=== PATIENT | female | born 1945 | race Caucasian/White ===

== ENCOUNTER 2017-09-05 08:54 | Inpatient (IN) | payer OTHER, BC ==
[2017-08-17 14:07] VITALS: BMI 23.0
--- NOTE | 2017-08-17 14:42 | PAT Medication Instructions ---
Service Date Aug 17, 2017. Current Home Medication List Amlodipine (Norvasc), 2.5 MG PO QPM Fish Oil ([place]-3), 1 CAP PO QAM Ibuprofen (Advil), 400-600 MG PO PRN Metoprolol Succinate (Toprol Xl), 25 MG PO QPM Multivitamin (Multivitamin), 1 TAB PO QAM Medication Instructions For Your Scheduled Surgery -Follow your surgeon's instructions for: Ibuprofen (Advil), 400-600 MG PO PRN - Hold the following medications 2 weeks prior to surgery: Fish Oil ([place]-3), 1 CAP PO QAM - Hold the following medications the morning of surgery: Multivitamin (Multivitamin), 1 TAB PO QAM - Take the following medications as scheduled the night before surgery: Metoprolol Succinate (Toprol Xl), 25 MG PO QPM Amlodipine (Norvasc), 2.5 MG PO QPM NOTHING TO EAT O DRINK AFTER MIDNIGHT If you have any questions please call us at [phone] or [phone] or [phone]
--- NOTE | 2017-08-17 15:40 | DIAGNOSTIC IMAGING REPORT ---
CHEST 2 VIEWS ROUTINE CLINICAL HISTORY: Preoperative evaluation. COMPARISON STUDY: No previous studies for comparison. FINDINGS: Lung volumes are normal. No consolidation is identified and there is no evidence of pulmonary edema. Cardiomediastinal silhouette is normal. Pulmonary vascularity is normal. IMPRESSION: No acute cardiopulmonary findings. Electronically signed by: Noble Tierney M.D. 08/17/2017 3:39 PM Dictated Date/Time: 08/17/2017 3:38 PM
[2017-08-17 15:42] LABS: BUN/CREATININE RATIO 22.3 (10-20); CALCIUM 9.2 mg/dl (8.5-10.1); CREATININE 0.66 mg/dl (0.60-1.20); POTASSIUM 3.7 mmol/L (3.5-5.1)
[2017-08-17 15:46] LABS: PROTHROMBIN TIME (PATIENT) 10.6 SECONDS (9.0-12.0)
[2017-08-17 15:47] LABS: BASO % 0.3 %; BASO ABS # 0.02 K/uL (0-0.2); COMPLETE YES; EOS % 0.6 %; HEMATOCRIT 40.3 % (37-47); IG% 0.2 %; LYMPH % 27.4 %; LYMPH ABS # 1.73 K/uL (1.2-3.4); MEAN CELL VOLUME 95.7 fL (80-100); MEAN CORPUSCULAR HEMOGLOBIN 32.5 pg (25-34); MEAN PLATELET VOLUME 10.4 fL (7.4-10.4); MONO % 7.6 %; NEUT % 63.9 %; PLATELET COUNT 227 K/uL (130-400); RED BLOOD COUNT 4.21 M/uL (4.2-5.4); WHITE BLOOD COUNT 6.31 K/uL (4.8-10.8)
--- NOTE | 2017-09-02 22:33 | HISTORY & PHYSICAL EXAMINATION ---
DATE OF ADMISSION: 09/05/2017 CHIEF COMPLAINT: Right knee pain. 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 She has a long history of right knee pain, discomfort and had an ACL reconstruction done with bone patella tendon bone autograft over 20 years ago in the [facility]. Over the past several years, she has just developed increased pain and discomfort in her knee. She has chronic pain. She has pain with every step. The more she walks, the more it hurts. She does not report any instability, just pain. 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 She takes anti-inflammatories which takes the edge off at best. She would like to have her right knee fixed. PAST MEDICAL HISTORY: Hypertension. PAST SURGICAL HISTORY: Includes cervical spine fusion. ALLERGIES: None. CURRENT MEDICINES: Include: 1. Amlodipine. 2. Metoprolol. 3. Multivitamin. 4. Fish oil. SOCIAL HISTORY: A 72-year-old female. She is a self employed horse mcbride/instructor. She comes in with her today. She is . One 1-2 drinks per week. Does not smoke. Her son is a medical student in [place]. FAMILY HISTORY: Negative for diabetes, heart disease or blood clots. REVIEW OF SYSTEMS: Negative for diabetes, neurologic problems, vascular problems, bleeding disorders. Denies any chest pain or shortness of breath. No history of DVT or PE. PHYSICAL EXAMINATION: GENERAL: Reveals a healthy pleasant elderly female. She looks to be in good health. HEENT: Benign. NECK: Supple, no lymphadenopathy. LUNGS: Clear to auscultation. HEART: Regular rate and rhythm. ABDOMEN: Soft, nontender, nondistended. EXTREMITIES: Grossly neurovascularly intact except as follows: Examination of the right knee reveals patient ambulates with a bit of a limp. She is fairly neutral to slight varus alignment to her knee. She has a well-healed incision over the front of her knee. She has bony hypertrophy medially. Very stiff knee with about 5 degrees short of full extension and can flex only to about 90-95 degrees. No instability. No pain with hip motion. X-RAYS: X-rays of the right knee reviewed. It shows advanced right knee DJD. She has complete loss of medial joint space. She has evidence of previous ACL reconstruction with an interference screw in the femur as well as the tibia. 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 She has failed conservative treatment and would like to have her right knee replaced. PLAN: We are going to take her to the operating room and do a right total knee replacement. We will remove any hardware that needs to be removed in order to do a knee replacement. The risks and benefits of this procedure were explained to the patient including but not limited to DVT, PE, , infection, neurological injury, vascular injury, bleeding problem, pain, limited range of motion, stiffness, failure to relieve symptoms, incomplete relief of symptoms, need for further surgery in the future, fracture, leg length inequality, nerve palsy, etc. The patient understands and desires to proceed. Informed consent was obtained. She does have Acufex screws in her femur as per the operative report. We will use universal hardware removal tray to take out any screws that are necessary. She knows to take the metoprolol the morning of surgery. She is planning to be discharged home with [facility] health program.
[~2017-09-05] VITALS: Ht 170.2 cm; Wt 68.4 kg
[2017-09-05] VITALS (8 sets, daily range): BP systolic 94–146; BP diastolic 43–95; PULSE 59–78; TEMP 36.4–36.9; O2SAT 94–100; Ht 170.2 cm; Wt 68.4 kg
[~2017-09-05 08:54] MED LIST: ACETAMINOPHEN 500 MG TAB PO SCH; AMLO2.5T PO; BUPIVACAINE 0.25% 30 ML VIAL ONE; BUPIVACAINE 0.5 % 5 MG/1 ML PF 10ML VIAL ONE; BUPIVACAINE LIPOSOME 266 MG, BUPIVACAINE/EPINEPHRINE INJ 50 ML, SODIUM CHLORIDE 0.9% PF... INFIL SCH; CEFAZOLIN 2000MG IV PUSH 10 ML IV SCH; FAMOTIDINE 20 MG TAB PO SCH; GABAPENTIN 300 MG CAP PO SCH; IBUP-1050 PO; LACTATED RINGER'S 1000ML 1,000 ML IV SCH; LACTATED RINGER'S 1000ML 500 ML IV ONE; LACTATED RINGER'S 1000ML IV SCH; METO25TA3 PO; METOCLOPRAMIDE HCL 10 MG TAB PO SCH; MULT-506 PO; OMEG10007 PO; SCOPOLAMINE 1.5 MG TDSY TD SCH; TRANEXAMIC ACID INJ 1,000 MG in SYRINGE 0 ML IV SCH
--- NOTE | 2017-09-05 09:13 | History & Physical Bridge Note ---
H&P Re-Evaluation Bridge Note: I have examined the patient, reviewed the History & Physical and in the interval since the performance of the History & Physical I have noted the following changes of clinical significance: No changes noted
[2017-09-05] MEDS ORDERED: ONDANSETRON INJ 2 MG/ML 2 ML VIAL IV PRN ×2 (10:30→13:30)
[2017-09-05] MEDS ORDERED: ATROPINE SULFATE 0.1 MG/ML 5ML SYR IV PRN (10:30)
[2017-09-05] MEDS ORDERED: EpHEDrine SULFATE INJ 50 MG/ML AMP IV PRN (10:30)
[2017-09-05] MEDS ORDERED: FENTANYL CITRATE INJ 50 MCG/1 ML 2 ML VIAL ONE (10:32)
[2017-09-05] MEDS ORDERED: MIDAZOLAM HCL 1 MG/ML 2ML VIAL ONE ×2 (10:32)
[2017-09-05] MEDS ORDERED: BACITRACIN 50000 UNIT VIAL ONE (11:07)
[2017-09-05] MEDS ORDERED: SODIUM CHLORIDE 0.9% PF 50 ML VIAL ONE (11:07)
[2017-09-05] MEDS ORDERED: BUPIVACAINE/EPINEPHRINE 0.25% 1:200,000 30 ML VIAL ONE (11:07)
[2017-09-05] MEDS ORDERED: BUPIVACAINE LIPOSOME 1/3% 266 MG/20 ML VIAL INFIL ONE (11:07)
[2017-09-05] MEDS ORDERED: VANCOMYCIN HCL 1000MG/20ML VIAL ONE (11:35)
[2017-09-05] MEDS ORDERED: PROPOFOL IV EMULSION 10 MG/ML 20 ML VIAL IV ONE (12:06)
[2017-09-05] MEDS ORDERED: ONDANSETRON INJ 2 MG/ML 2 ML VIAL ONE (12:08)
[2017-09-05] MEDS ORDERED: DEXAMETHASONE SOD INJ 4 MG/ML VIAL ONE (12:08)
--- NOTE | 2017-09-05 13:18 | [facility] Post Operative Brief Note ---
Immediate Operative Summary Operative Date Sep 05, 2017. Pre-Operative Diagnosis Right Knee Degenerative Joint Disease Retained HWR S/P ACL Reconstruction Post-Operative Diagnosis Same Procedure(s) Performed Right Total Knee Arthroplasty Hardware Removal Right Knee Surgeon Dr. Perez Machine Adjuster Helper Surgeon(s) Jh Rowland PA-C Estimated Blood Loss 50cc Findings DJD Fluids (cc crystalloids) 1600 cc Specimens A. Right knee bone and tissue B. Explanted hardware Drains None Anesthesia Spinal Complication(s) None Disposition Recovery Room / PACU
[2017-09-05] MEDS ORDERED: BISACODYL 10 MG SUPP PR PRN (13:30)
[2017-09-05] MEDS ORDERED: SILVER SULFADIAZINE 1% CR 50 GM JAR EXT PRN (13:30)
[2017-09-05] MEDS ORDERED: MAGNESIUM HYDROXIDE SUSP 30 ML UDC PO PRN (13:30)
[2017-09-05] MEDS ORDERED: ZOLPIDEM TARTRATE 5 MG TAB PO PRN (13:30)
[2017-09-05] MEDS ORDERED: METOCLOPRAMIDE HCL INJ 5 MG/ML 2 ML VIAL IV PRN (13:30)
[2017-09-05] MEDS ORDERED: ALUMINUM/MAGNESIUM/SIMETH (MAALOX MAX) 30 ML UDC PO PRN (13:30)
--- NOTE | 2017-09-05 13:52 | Anesthesiology Progress Note ---
Anesthesia Post Op Note Date & Time Sep 05, 2017 at 13:52 Vital Signs Pain Intensity: 0 Vital Signs Past 12 Hours Date Time Temp Pulse Resp B/P (MAP) Pulse Ox O2 Delivery O2 Flow Rate FiO2 09/05/17 13:40 79 15 09/05/17 13:40 78 15 98 09/05/17 13:35 74 15 116/70 98 09/05/17 13:35 76 15 09/05/17 13:30 80 16 09/05/17 13:30 80 16 106/61 100 09/05/17 13:25 74 17 109/63 100 09/05/17 13:25 75 17 09/05/17 13:21 107/66 09/05/17 13:20 36.5 80 12 107/66 100 Oxymask 10 09/05/17 09:25 36.4 78 20 146/95 100 Room Air Notes Mental Status: alert / awake / arousable, participated in evaluation Pt Amnestic to Procedure: Yes Nausea / Vomiting: adequately controlled Pain: adequately controlled Airway Patency, RR, SpO2: stable & adequate BP & HR: stable & adequate Hydration State: stable & adequate Anesthetic Complications: no major complications apparent
[2017-09-05] MEDS: CHECK SCOPOLAMINE PATCH PLACEMENT SCH ×2 (16:25→23:29)
[2017-09-05] MEDS: D5W AND 1/2NSS + 20MEQ KCL 1,000 ML IV SCH (16:40)
[2017-09-05] MEDS: FERROUS GLUCONATE 324 MG TAB PO SCH (17:37)
[2017-09-05] MEDS: KETOROLAC TROMETHAMINE 15 MG/ML VIAL IV. SCH ×2 (17:37→23:29)
[2017-09-05] MEDS: TRAMADOL HCL 50 MG TAB PO PRN (17:40)
--- NOTE | 2017-09-05 18:27 | PROGRESS NOTE ---
DATE: 09/05/2017 SUBJECTIVE: A 72-year-old female postop from a right knee replacement and hardware removal. She is doing well. She is starting to have more pain. No chest pain or shortness of breath. Not feeling dizzy or lightheaded. OBJECTIVE: VITAL SIGNS: Temperature is 36.5. Vital signs stable. GENERAL: Reveals a healthy pleasant, middle-aged female. She is sitting up in bed, looks pretty comfortable. LUNGS: Clear to auscultation. HEART: Regular rate and rhythm. ABDOMEN: Soft, nontender, nondistended. EXTREMITIES: Grossly neurovascularly intact except as follows: Examination of the right leg reveals the leg to be well aligned. Dressing is clean, dry and intact. She can dorsiflex and plantarflex her foot appropriately. She is neurologically intact. X-RAYS: X-rays of the right knee from recovery room were reviewed. It shows a cemented posterior right total knee arthroplasty. Components looked to be in good position. No signs of problems. ASSESSMENT: A 72-year-old white female postop from a right knee replacement, doing well. Pain is controlled. She is neurologically intact. PLAN: 1. DVT prophylaxis including thigh-high TEDs, SCDs, and aspirin twice a day. 2. PT/OT. Weightbear as tolerated. Right total knee protocol. 3. Pain control, doing pretty well with current pain regimen. 4. Disposition: Plan to discharge to home with some home health, once adequately recovered. 5. IV antibiotics 24 hours.
[2017-09-05] MEDS: HYDROmorphone INJ 0.5 MG/0.5 ML SYR IV PRN ×2 (18:44→21:51)
[2017-09-05] MEDS ORDERED: TRANEXAMIC ACID INJ 1,000 MG in SODIUM CHLORIDE 0.9% 100ML 100 ML IV SCH (19:30)
[2017-09-05] MEDS: METOPROLOL SUCC 25MG EXT REL TAB PO SCH (20:32)
[2017-09-05] MEDS: ASPIRIN 325 MG ECTAB PO SCH (20:34)
[2017-09-05] MEDS: CEFAZOLIN IV 1,000 MG in SYRINGE 0 ML IV SCH (20:34)
[2017-09-05] MEDS: DOCUSATE SODIUM 100 MG CAP PO SCH (20:34)
[2017-09-05] MEDS: AMLODIPINE BESYLATE 5 MG TAB PO SCH (20:35)
[2017-09-05] MEDS: SENNA 8.6 MG TAB PO SCH (20:35)
--- NOTE | 2017-09-05 21:29 | OPERATIVE REPORT ---
DATE OF OPERATION: 09/05/2017 SURGEON: Cristofer Perez MD ENERGY SCHEDULER: RAFY Poole PREOPERATIVE DIAGNOSIS: 1. Right knee degenerative joint disease. 2. Retained hardware, right knee, status post anterior cruciate ligament reconstruction. POSTOPERATIVE DIAGNOSIS: Same. PROCEDURE PERFORMED: 1. Right cemented posterior stabilized total knee arthroplasty. 2. Right knee hardware removal. COMPLICATIONS: None. ESTIMATED BLOOD LOSS: 50 mL FLUID REPLACEMENT: 1600 mL crystalloid fluid replacement. TOURNIQUET TIME: 64 minutes at 300 mmHg. ANESTHESIA: Spinal with adductor canal block. DRAINS: None. SPECIMENS: Right knee sent for pathology. OPERATIVE INDICATIONS: The patient is a 72-year-old, very active female, who has had a long history of knee problems. She underwent ACL reconstruction with bone on patellar tendon bone autograft over 20 years ago. Over the past 5-10 years, she developed increased pain, discomfort and having difficulty doing her job. X-rays revealed advanced DJD. The patient elected to proceed with operative treatment. OPERATIVE FINDINGS: Operative findings revealed advanced right knee DJD. She had extensive grade 4 changes of the medial compartment as well as the patellofemoral compartment. Her ACL was completely deficient. She had a moderate-sized joint effusion. Very stiff knee with only about 100 degrees of flexion. OPERATIVE IMPLANTS: Operative implants consisted of: 1. A Biomet Vanguard size 70 right posterior stabilized femoral component. 2. A Biomet size 71 tibial tray. 3. A 10 mm posterior stabilized polyethylene insert. 4. A 34 x 8.5 all poly patella. OPERATIVE PROCEDURE: The patient taken to the operating room, identified and placed on the operating table in supine position. All contact areas were appropriately padded. IV antibiotics were provided by the anesthesia team. A spinal anesthetic and adductor canal block were provided in the holding area. Acuna catheter was placed in a sterile fashion. Right thigh tourniquet was then placed and the right lower extremity was then prepped and draped in the usual sterile fashion. The right leg was elevated and exsanguinated with Esmarch and the tourniquet was placed at 300 mmHg. An anterior approach to the right knee was then performed, using the previous incision and extending it both proximally and distally. Sharp dissection was carried out through the subcutaneous tissues down to the level of the extensor mechanism. A medial parapatellar arthrotomy incision was made. Some subperiosteal dissection was carried out medially. The fat pad was resected from beneath the patellar tendon. The lateral patellofemoral ligament was released. The patella was everted and knee was flexed. The osteophytes were taken off the distal femur. The ACL was completely absent. The PCL was released from the distal femur and the tibia subluxated anteriorly. The external tibial alignment jig was then placed in the anterior face of the tibia and adjusted 14 mm medially. A proximal tibial cut was made to remove about a millimeter or two of bone from the most deficient aspect of the medial tibial plateau. Some osteophytes were taken off medial and posteromedially. The tibia size was a size 71. Attention was then drawn to the femur. The distal femur was entered with a sharp drill bit. The intramedullary canal was suctioned. A right 5-degree valgus cutting guide was placed. Distal femoral cutting block was pinned in place. Distal femoral cut was made to take an additional 3 mm of bone off the distal femur. The femur was then sized to a size 70. We did downsize this almost an entire size due to the very narrow medial and lateral dimensions of her femur. Even a 70 was a bit big. The AP cutting block was pinned parallel to the epicondylar axis, which was 3 degrees of external rotation. The anterior cut, anterior chamfer, posterior cut, posterior chamfer cuts were made. A box cutting guide was placed and adjusted slightly lateral and the box cut was made. We did run into the interference screw on the femur while doing this and we removed this without incident. The knee was flexed. The remnants of the medial and lateral menisci were excised. The osteophytes were taken off the posterior aspect of the femur. A trial femoral component was placed. Tibial tray was pinned in maximum external rotation and the drill and stem punch were used to create a defect in proximal tibia for the tibial tray. I did carefully assess this and we were able to avoid the tibial interference screw; so we left it in place. The knee was then trialed and a 10 mm insert fit most appropriately. Attention was then drawn to the patella. The patella was cleaned of all soft tissues. Patella thickness measured 21 mm and was cut down to 13. It was sized to a size 34 patella. Lug holes were drilled for a 34 patella. The lateral osteophyte was removed. Patella button was placed. Knee was taken through range of motion and the patella tracked nicely with no thumbs test. Attention was then drawn toward placing the permanent components. All trial components were removed. A bone plug was placed in the distal femur to limit blood loss. A double batch of Palacos G cement was mixed. I did add an additional gram of vancomycin due to her previous surgery. A size 70 right posterior stabilized femoral component, a size 71 tibial tray, a 10 mm posterior stabilized polyethylene insert, the 34 x 8.5 all poly patella were then cemented in place. Knee was brought out into full extension until the cement hardened. A final cement check was then performed. The pericapsular tissues were injected with a total of 100 mL of a combination of 20 mL of Exparel, 30 mL of normal saline, 50 mL of 0.25% Marcaine with epinephrine. The patient did receive 1 gram of tranexamic acid. The tourniquet was then let down for a final tourniquet time of 64 minutes. Hemostasis was assured with the use of electrocautery. The wound was once again irrigated. The extensor mechanism was then closed with a combination of #1 PDS suture and a #1 Vicryl suture in a eyhexi-gu-zsaxe fashion. The extensor mechanism was checked and found to be intact. The subcutaneous tissues were then closed with 2-0 Dexon suture in a buried interrupted fashion. The skin was closed with skin lilian. The leg was then cleaned and dried and a sterile dressing of Xeroform, 4 x 4, sterile cast padding and Rodney bandage were applied. The patient then transferred to the recovery room in stable condition. The patient tolerated the procedure with no complications. All needle and sponge counts were correct at the end of the operation. I attest to the content of the Intraoperative Record and any orders documented therein. Any exception s are noted below.
[2017-09-05] MEDS: ACETAMINOPHEN 500 MG TAB PO SCH (21:50)
[2017-09-06] VITALS (7 sets, daily range): BP systolic 100–128; BP diastolic 58–81; PULSE 51–84; TEMP 36.4–36.9; O2SAT 93–97
[2017-09-06] MEDS: D5W AND 1/2NSS + 20MEQ KCL 1,000 ML IV SCH ×2 (04:05→10:21)
[2017-09-06] MEDS: CEFAZOLIN IV 1,000 MG in SYRINGE 0 ML IV SCH (04:05)
[2017-09-06 06:07] LABS: HEMATOCRIT 34.1 % (37-47); MEAN CELL VOLUME 97.4 fL (80-100); MEAN CORPUSCULAR HEMOGLOBIN 31.7 pg (25-34); MEAN CORPUSCULAR HGB CONC 32.6 g/dl (32-36); MEAN PLATELET VOLUME 10.1 fL (7.4-10.4); PLATELET COUNT 208 K/uL (130-400); WHITE BLOOD COUNT 12.03 K/uL (4.8-10.8)
[2017-09-06] MEDS: ACETAMINOPHEN 500 MG TAB PO SCH ×3 (06:13→21:08)
[2017-09-06] MEDS: KETOROLAC TROMETHAMINE 15 MG/ML VIAL IV. SCH ×4 (06:13→23:09)
[2017-09-06 06:51] LABS: BUN/CREATININE RATIO 21.1 (10-20); CALCIUM 8.4 mg/dl (8.5-10.1); CREATININE 0.84 mg/dl (0.60-1.20); POTASSIUM 4.7 mmol/L (3.5-5.1)
[2017-09-06] MEDS: CHECK SCOPOLAMINE PATCH PLACEMENT SCH ×3 (08:00→23:09)
[2017-09-06] MEDS: DOCUSATE SODIUM 100 MG CAP PO SCH ×2 (08:32→21:07)
[2017-09-06] MEDS: FERROUS GLUCONATE 324 MG TAB PO SCH ×3 (08:32→18:03)
[2017-09-06] MEDS: ASPIRIN 325 MG ECTAB PO SCH ×2 (08:32→21:07)
[2017-09-06] MEDS: PANTOprazole SOD 40 MG TAB PO SCH (08:33)
[2017-09-06] MEDS: MULTIVITAMIN TAB PO SCH (08:33)
[2017-09-06] MEDS: TRAMADOL HCL 50 MG TAB PO PRN ×2 (08:36→16:36)
--- NOTE | 2017-09-06 08:51 | Anesthesiology Progress Note ---
Anesthesia Post Op Note Date & Time Sep 06, 2017 at 08:51 Vital Signs Vital Signs Past 12 Hours Date Time Temp Pulse Resp B/P (MAP) Pulse Ox O2 Delivery O2 Flow Rate FiO2 09/06/17 08:47 Room Air 09/06/17 06:58 36.7 57 16 100/58 (72) 95 Room Air 09/06/17 04:10 36.9 84 16 105/62 (76) 95 Room Air 09/05/17 23:30 Room Air 09/05/17 23:10 36.9 67 16 106/67 (80) 94 Room Air Notes Mental Status: alert / awake / arousable, participated in evaluation Pt Amnestic to Procedure: Yes Nausea / Vomiting: adequately controlled Pain: adequately controlled Airway Patency, RR, SpO2: stable & adequate BP & HR: stable & adequate Hydration State: stable & adequate Neuraxial Anesthesia: sensory block resolved Anesthetic Complications: no major complications apparent
[2017-09-06] MEDS ORDERED: MULTIVITAMIN TAB PO SCH (09:00)
--- NOTE | 2017-09-06 09:08 | PROGRESS NOTE ---
DATE: 09/06/2017 SUBJECTIVE: A 72-year-old female postop day 1 from right knee replacement and hardware removal. She is doing pretty well. Some pain but manageable. No chest pain or shortness of breath. Not feeling dizzy or lightheaded. OBJECTIVE: VITAL SIGNS: Temperature 36.7. Vital signs stable. GENERAL: Reveals patient is a pleasant middle-aged female. She is lying in bed, looks reasonably comfortable. EXTREMITIES: Examination of the leg reveals the dressing to be clean, dry and intact. Leg is well aligned. She can dorsiflex and plantarflex her foot appropriately. She is neurologically intact. LABORATORY DATA: Hemoglobin 11.1. Hematocrit 34.1. White cell count 12.03. Electrolytes are stable. ASSESSMENT: A 72-year-old female postop day 1 from a right knee replacement and hardware removal, doing pretty well. Pain is adequately controlled. She is neurologically intact. PLAN: 1. DVT prophylaxis including thigh-high TEDs, SCDs, and aspirin twice a day. 2. PT/OT. Weightbearing as tolerated. Right total knee protocol. 3. Pain control, doing pretty well with current pain regimen. 4. Disposition: She is planning to be discharged to home with some home health once adequately recovered.
[2017-09-06] MEDS: HYDROmorphone INJ 0.5 MG/0.5 ML SYR IV PRN ×2 (10:18→18:07)
[2017-09-06] MEDS: METOPROLOL SUCC 25MG EXT REL TAB PO SCH (21:07)
[2017-09-06] MEDS: SENNA 8.6 MG TAB PO SCH (21:07)
[2017-09-06] MEDS: AMLODIPINE BESYLATE 5 MG TAB PO SCH (21:07)
[2017-09-07] MEDS: ACETAMINOPHEN 500 MG TAB PO SCH ×2 (05:53→13:49)
[2017-09-07] MEDS: KETOROLAC TROMETHAMINE 15 MG/ML VIAL IV. SCH ×2 (05:53→12:12)
[2017-09-07 07:29] VITALS: BP 110/80; PULSE 60; TEMP 36.5; O2SAT 95
[2017-09-07] MEDS: MULTIVITAMIN TAB PO SCH (07:35)
[2017-09-07] MEDS: CHECK SCOPOLAMINE PATCH PLACEMENT SCH (07:35)
[2017-09-07] MEDS: PANTOprazole SOD 40 MG TAB PO SCH (07:35)
[2017-09-07] MEDS: DOCUSATE SODIUM 100 MG CAP PO SCH (07:36)
[2017-09-07] MEDS: FERROUS GLUCONATE 324 MG TAB PO SCH ×2 (07:36→12:12)
[2017-09-07] MEDS: ASPIRIN 325 MG ECTAB PO SCH (07:36)
[2017-09-07] MEDS: TRAMADOL HCL 50 MG TAB PO PRN (07:36)
[2017-09-07 07:40] VITALS: O2SAT 95
[2017-09-07] MEDS ORDERED: ASPEC325 PO (08:07)
[2017-09-07] MEDS ORDERED: ULT50X PO (08:07)
[2017-09-07] MEDS ORDERED: ACET-24 PO (08:07)
--- NOTE | 2017-09-07 08:09 | Discharge Instructions ---
Discharge Instructions Date of Service Sep 07, 2017. Admission Reason for Admission: Right Knee Degenerative Joint Disease Discharge Discharge Diagnosis / Problem: Right Knee Replacement Discharge Goals Goal(s): Decrease discomfort, Improve function, Increase independence, Improve disease control, Therapeutic intervention Activity Recommendations Activity Limitations: per Instructions/Follow-up section Weightbearing Status: Right weightbearing . Instructions / Follow-Up Instructions / Follow-Up ACTIVITY RECOMMENDATIONS: Physical Therapy: * You will go to physical therapy three times each week for four to six weeks after your surgery in order to regain your knee range of motion and to retrain your knee to work properly. * It is just as important to make sure you are getting your knee perfectly straight as it is to regain your knee bend. * Taking a pain pill an hour before therapy can help you have a more productive and comfortable therapy session. Home Exercise: * You were shown a series of exercises (heel props, heel slides, etc.) in the hospital. Do these exercises three to four times each day including the exercises you were shown in physical therapy. Walking: * Get up and walk several times each day. For the first four weeks, try not to stand or walk for more than one hour at a time. If you do stand or walk for more than one hour, you will not hurt anything, but your knee and leg will likely swell. * As you feel comfortable, you may change from the walker or crutches to a cane and then to independent walking. MEDICATIONS: New Medicine: * You will likely be taking one or more of these medications: 1. Oxycodone - A quick and shorter-acting pain medication. Take one to two tablets every four to six hours to lessen your pain. 2. Aspirin - Thins your blood to lessen the chance of forming a blood clot. * The most common side effects of pain medicine and iron are nausea and constipation. If nausea or constipation is too much of a problem or if you have any questions about your new medicines or doses, call [facility] at [phone]. We will try to help you manage these issues. VERY IMPORTANT TO READ AND REVIEW" Pain: * The immediate post-operative period after knee replacement surgery is often quite painful. * You are given a prescription for pain medicine. You should take it, as directed, when you need it, especially before physical therapy and before going to bed. Pain that interferes with sleep is very common and can last several months. * You will likely need pain medicine for the first four to six weeks. It will not stop all of the pain. The pain will lessen and as you feel better, you may change to milder pain medicine such as Tylenol. * The most common side effects of pain medicine are nausea and constipation, so don't take more than you need. SPECIAL CARE INSTRUCTIONS: TEDs/Elastic Stockings: * The white elastic stockings help limit swelling and prevent blood clots from forming in your legs. The more you wear them, the more they work. * Wear them for six weeks after knee replacement surgery and four weeks after partial knee replacement. Prevention of Infection: * Take antibiotics one hour before any dental cleaning, dental work, urological procedure, gastrointestinal procedure or any invasive surgery in order to prevent your new joint from getting infected. * You may get the antibiotics from the doctor performing the procedure or you may call our office at before and we will call in a prescription to the pharmacy of your choice. Things to Watch For: * Drainage from the incision site that occurs more than one week after your surgery. * Severely increased knee/leg pain or swelling. * Increased redness at the incision site. * Fever above 102 degrees Fahrenheit. * Unusual chest pain or shortness of breath. * Unusual pain or burning with urination. Call [facility] at with any of the above problems or if you have any questions about your medicines or recovery. FOLLOW UP VISIT: Make an appointment to see your doctor for approximately two weeks after surgery for a progress check and staple removal by calling the office at . Current Hospital Diet Patient's current hospital diet: Regular Diet Discharge Diet Recommended Diet: Regular Diet Procedures Procedures Performed: Right Total Knee Arthroplasty Hardware Removal Right Knee Pending Studies Studies pending at discharge: no Medical Emergencies . Who to Call and When: Medical Emergencies: If at any time you feel your situation is an emergency, please call [phone] immediately. . Non-Emergent Contact Non-Emergency issues call your: Surgeon . "Provider Documentation" section prepared by Cristofer Perez. . VTE Core Measure Inpt VTE Proph given/why not?: Other Anticoagulation, T.E.D. Stockings, SCD's
--- NOTE | 2017-09-07 09:07 | DIAGNOSTIC IMAGING REPORT ---
RIGHT KNEE RADIOGRAPHS CLINICAL HISTORY: Postoperative evaluation. COMPARISON: Knee radiographs October 26, 2011. FINDINGS: Alignment of the right knee arthroplasty is anatomic. There is no periprosthetic fracture or unexpected radiopaque foreign body. A preexisting screw within the proximal right tibia from previous ACL reconstruction is noted. There are skin lilian. IMPRESSION: Expected findings following total right knee arthroplasty. Electronically signed by: Noble Tierney M.D. 09/07/2017 9:05 AM Dictated Date/Time: 09/05/2017 2:09 PM
[2017-09-07] MEDS ORDERED: RXC5 PO (10:24)
[2017-09-07] MEDS ORDERED: OXYCODONE HCL IR 5 MG TAB (IMMEDIATE RELEASE) PO PRN (10:30)
[2017-09-07 10:34] VITALS: BP 110/80; PULSE 60; TEMP 36.5; O2SAT 95
[2017-09-07 11:22] VITALS: BP 110/80; PULSE 62; TEMP 36.3; O2SAT 98
--- NOTE | 2017-09-07 12:27 | PROGRESS NOTE ---
DATE: 09/07/2017 SUBJECTIVE: A 72-year-old female postop day #2 from a right knee replacement. She is doing pretty well. Would like something else for pain. No chest pain or shortness of breath. Not feeling dizzy or lightheaded. OBJECTIVE: VITAL SIGNS: Temperature 36.3. Vital signs stable. GENERAL: Reveals a pleasant, middle-aged female. She is sitting up in bed, looks reasonably comfortable. EXTREMITIES: Examination of the right leg reveals the dressing to be clean, dry and intact. Leg is well aligned. She can dorsiflex and plantarflex her foot appropriately. NEUROLOGIC: She is neurologically intact. ASSESSMENT: A 72-year-old female postoperative day #2 from a right knee replacement, doing pretty well. Would like a little bit better pain control. PLAN: 1. DVT prophylaxis including thigh high TEDs, SCDs, and aspirin twice a day. 2. PT, OT. Weightbear as tolerated. Right total knee protocol. 3. Pain control. We are going to switch her from tramadol to oxycodone. She will continue on the around the clock Tylenol and Toradol. When she goes home, she can go back to her anti-inflammatories. 4. Disposition: Plan to discharge to home with home health later today. DASHA
== END 2017-09-07 14:30 | disposition home health service (06) | DRG 470 ==
LOC: C.ACU 08:54 → C.3E 13:23 → ENRESERV 13:52
PROVIDERS: ADMIT Orthopaedic Surgery Sports Medicine; ATTEND Orthopaedic Surgery Sports Medicine
PROC: 0SRC0J9 Replacement of Right Knee Joint with Synthetic Substitute, Cemented, Open Approach (ICD-10-PCS; principal; 2017-09-05 11:15)
PROC: 0QPB04Z Removal of Internal Fixation Device from Right Lower Femur, Open Approach (ICD-10-PCS; principal; 2017-09-05 11:15)
DX: M17.11 Unilateral primary osteoarthritis, right knee (principal); Z18.10 Retained metal fragments, unspecified; I10 Essential (primary) hypertension; Z79.899 Other long term (current) drug therapy; Z98.890 Other specified postprocedural states